=== PATIENT | female | born 2000 | race Caucasian/White ===

== ENCOUNTER 2020-06-11 03:34 | Emergency (ER) | payer OTHER ==
[~2020-06-11] VITALS: Ht 157.5 cm; Wt 54.4 kg
[2020-06-11 03:38] VITALS: Ht 157.5 cm; Wt 54.4 kg
[2020-06-11 04:02] VITALS: BP 131/88
== END 2020-06-11 04:02 ==
LOC: ED 03:34
DX: Z02.89 Encounter for other administrative examinations (principal)